=== PATIENT | male | born 1985 | race Caucasian/White ===

== ENCOUNTER 2016-06-29 10:51 | Emergency (ER) | payer OTHER ==
[~2016-06-29] VITALS: Ht 180.3 cm; Wt 90.0 kg
[~2016-06-29 10:51] MED LIST: LORA-474 PO; VASO10TA8 PO
[2016-06-29 10:52] VITALS: BP 159/88; PULSE 69; RESP 16; TEMP 98.2; O2SAT 100
--- NOTE | 2016-06-29 11:32 | PD ---
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 Apparently the patient did not have an isolation cart outside the door and the employee went into the room. He said the patient coughed and the employee left and then found out he had meningitis. He went to [place] and then spoke with his road supervisor of engines and apparently his road supervisor of engines spoke to risk management and risk management said for the patient to come to the ER to be evaluated. The patient has no medical complaints. He denies fever, chills, nausea, vomiting. Denies neck pain, back pain. Denies chest pain, shortness breath, abdominal pain. Allergies to corticosteroids, doxycycline, penicillin, prednisone. Has an established primary care provider. No other modifying factors or associated signs and symptoms. PFSH Past Medical History Anxiety: Yes Depression: Yes Cardiovascular Problems: Yes (HTN) Diminished Hearing: No Hypertension: Yes Neurologic: Yes Integumentary: Yes (EAR INFECTIONS SEVERAL TIMES PER YEAR) Social History Alcohol Use: Yes (OCCASIONALLY) Tobacco Use: No Substance Use: No Allergies-Medications (Allergen,Severity, Reaction): Coded Allergies: Doxycycline (Verified Allergy, Severe, rash, 06/29/16) Penicillin (Verified Allergy, Severe, DIZZINESS, 06/29/16) Corticosteroids (Verified Adverse Reaction, Severe, "all steroids raise my blood pressure", 06/29/16) Prednisone (Verified Adverse Reaction, Severe, raised blood pressure, ) Reported Meds & Prescriptions Reported Meds & Active Scripts Active Reported Vasotec (Enalapril Maleate) 10 Mg Tab 5 Mg PO DAILY Ativan (Lorazepam) 1 Mg Tab 1 Mg PO TID Review of Systems Except as stated in HPI: all other systems reviewed are Neg Physical Exam Narrative GENERAL: Well-nourished, well-developed male patient, in no acute distress; afebrile, nontoxic appearing SKIN: Warm and dry. HEAD: Atraumatic. Normocephalic. EYES: Pupils equal and round. No scleral icterus. No injection or drainage. ENT: Mucosa pink and moist. Airway patent. NECK: Trachea midline. CARDIOVASCULAR: Regular rate and rhythm. No murmur appreciated. RESPIRATORY: No accessory muscle use. Clear to auscultation. Breath sounds equal bilaterally. GASTROINTESTINAL: Abdomen soft, non-tender, nondistended. Hepatic and splenic margins not palpable. Bowel sounds are active 4 quadrants. MUSCULOSKELETAL: No obvious deformities. No clubbing. No cyanosis. No edema. NEUROLOGICAL: Awake and alert. Oriented 3. No obvious cranial nerve deficits. Motor grossly within normal limits. Normal speech. PSYCHIATRIC: Appropriate mood and affect; insight and judgment normal. Data Data Last Documented VS Vital Signs Date Time Temp Pulse Resp B/P Pulse Ox O2 Delivery O2 Flow Rate FiO2 06/29/16 10:52 98.2 69 16 159/88 100 Room Air [facility] Medical Decision Making Medical Screen Exam Complete: Yes Emergency Medical Condition: No Differential Diagnosis Medical clearance, exposure to meningitis, malingering Narrative Course 30-year-old male, [employer] employee, sent by [facility], [employer] management and road supervisor of engines to be evaluated after being exposed to a patient with meningitis on Monday. The patient has no medical complaints. He is afebrile and nontoxic- appearing. He denies fever, chills, nausea, vomiting. Physical exam is unremarkable. 1125: I called [facility] and spoke with Piter in regards to treatment of the patient. He said he would call risk management and call me back with more information. 1217: I called [facility] and spoke with a lady, of unknown name, who says she told the patient that she was going to call him after he was seen in [facility] and she doesn't know why the patient came to the ER. She also said Piter had already called the patient and told him that the patient he was exposed to was not contagious. She said the patient had gram-positive and patient is not contagious and no further treatment or evaluation is needed. This was discussed with the patient and he said he had already talked to Piter from [facility] while he was waiting. Discussed reasons for the patient to return to the emergency department. Vital signs are stable and the patient is stable for outpatient follow-up and treatment. The patient has no urgent or emergent medical complaints. There is no emergent or urgent medical need at this time. I instructed the patient to follow up with their primary care provider. A medical screening exam was performed: At the time of evaluation the presenting medical condition was determined not to be of an emergent nature. The patient was given the option of receiving additional care, but declined. Patient was given options for additional community resources from which to obtain care. The Patient Has Been advised to seek medical attention for their presenting complaint. The patient has been advised to return to the ER at any time if an emergent condition develops. Diagnosis Primary Impression: Encounter for medical screening examination Condition: Stable Ellen Urbina Jun 29, 2016 11:31
== END 2016-06-29 12:28 | disposition left against medical advice (07) ==
LOC: NEPB 10:51
DX: Z03.89 Encounter for observation for other suspected diseases and conditions ruled out (principal); Z20.811 Contact with and (suspected) exposure to meningococcus
CPT/HCPCS: 99281